=== PATIENT | male | born 1970 | race Hispanic/Latino ===

== ENCOUNTER 2019-05-07 20:02 | Inpatient (IN) | payer BC, OTHER ==
[~2019-05-07] VITALS: Ht 165.1 cm; Wt 86.2 kg
[2019-05-07] MEDS ORDERED: MORPHINE SULFATE INJ 4 MG/ML INJ 1ML IV STA (20:13)
[2019-05-07] MEDS ORDERED: SODIUM CHLORIDE 0.9% 1000ML 1,000 ML IV STA (20:13)
[2019-05-07] MEDS ORDERED: ONDANSETRON HCL INJ 2MG/ML 2ML 2 MG/ML VIAL IV STA (20:13)
[2019-05-07] MEDS ORDERED: ACETAMINOPHEN 325 MG TAB PO ONE (20:30)
[2019-05-07] MEDS ORDERED: CEFEPIME 2 GM/NS 0.9% 100 ML 100 ML IV SCH (20:30)
[2019-05-07] MEDS ORDERED: ACETAMINOPHEN 325 MG TAB ONE (20:33)
[2019-05-07] MEDS ORDERED: CEFEPIME 2 GM/NS 0.9% 100 ML 100 ML IV ONE (20:33)
[2019-05-07 20:46] LABS: BASOPHILS % 0.1 % (0.0-1.0); EOSINOPHILS # (AUTO) 0.1 (0.0-0.4); EOSINOPHILS % 0.4 % (0.0-6.0); HEMATOCRIT 49.2 % (38.2-49.6); HEMOGLOBIN 16.6 g/dL (14.0-18.0); LYMPHOCYTES # (AUTO) 0.9 (1.0-3.2); LYMPHOCYTES % 6.2 % (18.0-39.1); MEAN CORPUSCULAR HEMOGLOBIN 29.7 pg (28-32); MEAN CORPUSCULAR HGB CONC 33.7 g/dL (31-35); MONOCYTES # (AUTO) 0.5 (0.2-0.8); MONOCYTES % 3.3 % (4.4-11.3); NEUTROPHILS # (AUTO) 12.4 (2.1-6.9); NEUTROPHILS % 89.6 % (38.7-80.0); PLATELET COUNT 233 x10e3/uL (140-360); RED BLOOD COUNT 5.59 x10e6/uL (4.3-5.7); RED CELL DISTRIBUTION WIDTH 13.1 % (11.7-14.4)
[2019-05-07 20:51] LABS: CLARITY,URINE SL CLOUDY (CLEAR); COLOR,URINE YELLOW (YELLOW); KETONES,URINE NEGATIVE (NEGATIVE); LEUKOCYTE ESTERASE ,URINE NEGATIVE (NEGATIVE); NITRITE,URINE NEGATIVE (NEGATIVE); PROTEIN,URINE DIPSTICK NEGATIVE (NEGATIVE); URINE UROBILINOGEN 0.2 mg/dL (0.2 - 1)
[2019-05-07 20:52] LABS: BILIRUBIN,URINE NEGATIVE (NEGATIVE)
[2019-05-07 21:03] LABS: BACTERIA,URINE FEW /HPF
[2019-05-07 21:05] LABS: STREPTOCOCCUS GRP A ANTIGEN NEGATIVE (NEGATIVE)
[2019-05-07 21:07] LABS: ALANINE AMINOTRANSFERASE 39 IU/L (0-55); ALBUMIN 3.7 g/dL (3.5-5.0); ALKALINE PHOSPHATASE 74 IU/L (40-150); ANION GAP 13.5 mmol/L (8-16); BLOOD UREA NITROGEN 12 mg/dL (7-26); BUN/CREATININE RATIO 11 (6-25); CALCIUM 8.6 mg/dL (8.4-10.2); CARBON DIOXIDE 20 mmol/L (22-29); CHLORIDE 105 mmol/L (98-107); CREATININE, SERUM 1.06 mg/dL (0.72-1.25); EST GLOMERULAR FILTRATION RATE > 60 ML/MIN (60-); GLUCOSE 146 mg/dL (74-118); LIPASE 18 U/L (8-78); POTASSIUM 3.5 mmol/L (3.5-5.1); SODIUM 135 mmol/L (136-145)
[2019-05-07 21:09] LABS: INFLUENZAE A&B ANTIGEN (RAPID) NEGATIVE (NEGATIVE)
[2019-05-07] MEDS: SODIUM CHLORIDE 0.9% 1000ML 1,000 ML IV SCH (21:41)
--- NOTE | 2019-05-07 22:36 | Diagnostic Imaging Report ---
EXAMINATION: CHEST 2 VIEWS INDICATION: Pain. COMPARISON: None FINDINGS: TUBES and LINES: None. LUNGS: Lungs are well inflated. Mild perihilar, peribronchial thickening and perihilar streaky densities may reflect viral infection versus reactive airway disease. Bibasilar atelectasis. PLEURA: No pleural effusion or pneumothorax. HEART AND MEDIASTINUM: The cardiomediastinal silhouette is unremarkable. BONES AND SOFT TISSUES: No acute osseous lesion. Soft tissues are unremarkable. UPPER ABDOMEN: No free air under the diaphragm. IMPRESSION: Mild bilateral perihilar, peribronchial thickening. No focal consolidations. Signed by: Dr. Juli Pastrana M.D. on 05/07/2019 10:33 PM
[2019-05-07] MEDS ORDERED: IOPAMIDOL 370 MG/ML 200 ML INFUS..BTL INJ ONE (22:41)
[2019-05-07] MEDS ORDERED: SODIUM CHLORIDE 0.9% 50ML 50 ML ONE (22:41)
--- NOTE | 2019-05-07 22:55 | Diagnostic Imaging Report ---
EXAM: CT Abdomen and Pelvis WITH contrast INDICATION: Abdominal pain, nausea, vomiting diarrhea. Fever and chills. COMPARISON: None. TECHNIQUE: Abdomen and pelvis were scanned utilizing a multidetector helical scanner from the lung base to the pubic symphysis after administration of IV contrast. Coronal and sagittal reformations were obtained. Routine protocol was performed. Scan was performed when during portal venous phase. IV CONTRAST: 100 cc Isovue-370 ORAL CONTRAST: Water RADIATION DOSE: Total DLP: 718.03 mGy*cm Estimated effective dose: (DLP x 0.015 x size factor) mSv COMPLICATIONS: None FINDINGS: LINES and TUBES: None. LOWER THORAX: There is bibasilar atelectasis. HEPATOBILIARY: The liver is diffuse hypodense compared to the spleen, consistent with diffuse hepatic diffuse hepatic steatosis. No focal hepatic lesions. No biliary ductal dilation. GALLBLADDER: No radio-opaque stones or sludge. No wall thickening. SPLEEN: No splenomegaly. PANCREAS: No focal masses or ductal dilatation. ADRENALS: No adrenal nodules KIDNEYS/URETERS: Kidneys enhance symmetrically. No hydronephrosis. No cystic or solid mass lesions. No stones. GI TRACT: No abnormal distention, wall thickening, or evidence of bowel obstruction. Appendix is normal. PELVIC ORGANS/BLADDER: Unremarkable. LYMPH NODES: No lymphadenopathy. VESSELS: There is mild atherosclerotic disease in the aorta and major arterial branches. PERITONEUM / RETROPERITONEUM: No free air or fluid. BONES: Unremarkable. SOFT TISSUES: Unremarkable. IMPRESSION: 1. No acute abdominal pelvic abnormality. 2. Hepatic steatosis. Signed by: Dr. Juli Pastrana M.D. on 05/07/2019 10:52 PM
--- NOTE | 2019-05-07 23:26 | NUR ---
Patient swabbed for COVID-19 and dowtime form with order and ER MD signature sent to lab.
[2019-05-07] MEDS ORDERED: ONDANSETRON HCL INJ 2MG/ML 2ML 2 MG/ML VIAL IV PRN (23:30)
[2019-05-07] MEDS ORDERED: ACETAMINOPHEN 325 MG TAB PO PRN (23:30)
--- OUTSIDE RECORDS SUMMARY | 2019-05-07 23:30 | XMS REPORT ---
Author Author [facility] Address Unknown Phone Unavailable Care Team Providers Care Licensed Nursing Assistant Name Role Phone Jesusita BRITO Unavailable Unavailable Problems This patient has no known problems. Allergies, Adverse Reactions, Alerts This patient has no known allergies or adverse reactions. Medications This patient has no known medications. Results Test Description Test Time Test Comments Text Results Atomic Results Result Comments CT ABDOMEN/PELVIS W 2019-05-07 22:42:00 [facility] [address] [place] [id number] Patient Name: TRENTON ISIDRO MR #: [id number] : 1970 Age/Sex: 48/M Req #: [id number] Adm Physician: Ordered by: MIMI GONZALEZ FLATBED DRIVER Report #: [id number] Location: ER Room/Bed: Procedure: [id number] CT/CT ABDOMEN/PELVIS W Exam Date: Exam Time: REPORT STATUS: Signed EXAM: CT Abdomen and Pelvis WITH contrast INDICATION: Abdominal pain, nausea, vomiting diarrhea. Fever and chills. COMPARISON: None. TECHNIQUE: Abdomen and pelvis were scanned utilizing a multidetector helical scanner from the lung base to the pubic symphysis after administration of IV contrast. Coronal and sagittal reformations were obtained. Routine protocol was performed. Scan was performed when during portal venous phase. IV CONTRAST: 100 cc Isovue-370 ORAL CONTRAST: Water RADIATION DOSE: Total DLP: 718.03 mGy*cm Estimated effective dose: (DLP x 0.015 x size factor) mSv COMPLICATIONS: None FINDINGS: LINES and TUBES: None. LOWER THORAX: There is bibasilar atelectasis. HEPATOBILIARY: The liver is diffuse hypodense compared to the spleen, consistent with diffuse hepatic diffuse hepatic steatosis. No focal hepatic lesions. No biliary ductal dilation. GALLBLADDER: No radio- opaque stones or sludge. No wall thickening. SPLEEN: No splenomegaly. PANCREAS: No focal masses or ductal dilatation. ADRENALS: No adrenal nodules KIDNEYS/URETERS: Kidneys enhance symmetrically. No hydronephrosis. No cystic or solid mass lesions. No stones. GI TRACT: No abnormal distention, wall thickening, or evidence of bowel obstruction. Appendix is normal. PELVIC ORGANS/BLADDER: Unremarkable. LYMPH NODES: No lymphadenopathy. VESSELS: There is mild atherosclerotic disease in the aorta and major arterial branches. PERITONEUM / RETROPERITONEUM: No free air or fluid. BONES: Unremarkable. SOFT TISSUES: Unremarkable. IMPRESSION: 1. No acute abdominal pelvic abnormality. 2. Hepatic steatosis. Signed by: Dr. Juli Brenner M.D. on 05/07/2019 10:52 PM Dictated By: ROXANNA BRENNER MD, MD 51 Transcribed By: BONY on 05/07/192251 COPY TO: MIMI GONZALEZ NP CHEST 2 VIEWS 2019-05-07 22:31:00 [place] [address] Patient Name: TRENTON ISIDRO MR #: [id number] : 1970 Age/Sex: 48/M Req #: [id number] Adm Physician: Ordered by: MIMI GONZALEZ FLATBED DRIVER Report #: [id number] Location: ER Room/Bed: Procedure: [id number] DX/CHEST 2 VIEWS Exam Date: 05/07/19 Exam Time: 2149 REPORT STATUS: Signed EXAMINATION: CHEST 2 VIEWS INDICATION: Pain. COMPARISON: None FINDINGS: TUBES and LINES: None. LUNGS: Lungs are well inflated. Mild perihilar, peribronchial thickening and perihilar streaky densities may reflect viral infection versus reactive airway disease. Bibasilar atelectasis. PLEURA: No pleural effusion or pneumothorax. HEART AND MEDIASTINUM: The cardiomediastinal silhouette is unremarkable. BONES AND SOFT TISSUES: No acute osseous lesion. Soft tissues are unremarkable. UPPER ABDOMEN: No free air under the diaphragm. IMPRESSION: Mild bilateral perihilar, peribronchial thickening. No focal consolidations. Signed by: Dr. Juli Brenner M.D. on 05/07/2019 10:33 PM Dictated By: ROXANNA BRENNER MD, MD 32 Transcribed By: BONY on 05/07/192232 COPY TO: MIMI GONZALEZ NP
[2019-05-08] VITALS (9 sets, daily range): BP systolic 93–110; BP diastolic 48–72
[2019-05-08] MEDS: SODIUM CHLORIDE 0.9% 1000ML 1,000 ML IV SCH ×4 (00:36→19:54)
[2019-05-08] MEDS: METRONIDAZOLE 500MG/NS 100ML 100 ML IV SCH ×4 (00:36→17:35)
--- NOTE | 2019-05-08 00:56 | NUR ---
PATIENT CAME FROM ER WITH WHEELCHAIR, AWAKE ALERT ORIENTED, STATED STARTED HAVING FEVER AND DIARRHEA YESTERDAY. VITALS CHECKED, NO DISTRESS NOTED AT THIS TIME, IV FLUID AND IV ANTIBIOTIC RUNNING AT THIS TIME. DENIED ANY PAIN OR DISCOMFORT. WILL CONTINUE TO MONITOR.
[2019-05-08 06:25] LABS: BASOPHILS % 0.2 % (0.0-1.0); EOSINOPHILS # (AUTO) 0.1 (0.0-0.4); EOSINOPHILS % 1.2 % (0.0-6.0); HEMATOCRIT 42.5 % (38.2-49.6); HEMOGLOBIN 14.3 g/dL (14.0-18.0); LYMPHOCYTES # (AUTO) 1.2 (1.0-3.2); LYMPHOCYTES % 14.9 % (18.0-39.1); MEAN CORPUSCULAR HEMOGLOBIN 29.7 pg (28-32); MEAN CORPUSCULAR HGB CONC 33.6 g/dL (31-35); MEAN CORPUSCULAR VOLUME 88.2 fL (81-99); MONOCYTES # (AUTO) 0.7 (0.2-0.8); MONOCYTES % 8.9 % (4.4-11.3); NEUTROPHILS # (AUTO) 6.2 (2.1-6.9); NEUTROPHILS % 74.4 % (38.7-80.0); PLATELET COUNT 188 x10e3/uL (140-360); RED BLOOD COUNT 4.82 x10e6/uL (4.3-5.7); RED CELL DISTRIBUTION WIDTH 13.1 % (11.7-14.4)
[2019-05-08 06:42] LABS: ALANINE AMINOTRANSFERASE 30 IU/L (0-55); ALBUMIN/GLOBULIN RATIO 0.9 (0.8-2.0); ALKALINE PHOSPHATASE 61 IU/L (40-150); ANION GAP 8.5 mmol/L (8-16); CALCIUM 7.9 mg/dL (8.4-10.2); CARBON DIOXIDE 23 mmol/L (22-29); CHLORIDE 110 mmol/L (98-107); CREATININE, SERUM 0.82 mg/dL (0.72-1.25); EST GLOMERULAR FILTRATION RATE > 60 ML/MIN (60-); GLUCOSE 124 mg/dL (74-118); POTASSIUM 3.5 mmol/L (3.5-5.1); SODIUM 138 mmol/L (136-145)
--- NOTE | 2019-05-08 07:00 | NUR ---
bedside rounds complete no distress noted, updated on poc vocied understanding,ivf infusing to r ac 20g no ss of infiltration noted, isolation precautions in place, denies pain at this time, call light in reach will continue to monitor
[2019-05-08] MEDS: CEFEPIME 2 GM/NS 0.9% 100 ML 100 ML IV SCH ×3 (07:08→21:57)
[2019-05-08 08:26] LABS: BLOOD UREA NITROGEN 10 mg/dL (7-26); BUN/CREATININE RATIO 12 (6-25)
--- NOTE | 2019-05-08 16:30 | NUR ---
dr prater at bedside pt does not have to be in isolation precautions, notified dr carroll awaiting call back
--- NOTE | 2019-05-08 17:20 | NUR ---
spoke with Dr. Chris montalvo to transfer to [facility], notified housekeeper caregiver
--- NOTE | 2019-05-08 17:35 | Consultation ---
DATE OF CONSULTATION: 05/08/2019 ADDENDUM: There is concern if the patient is at risk for COVID-19. He has no risk factors. Clinically, it seems like gastroenteritis. The plan is to take him off isolation, observe him for diarrhea. The nurse tells me there is no more diarrhea. If he has no diarrhea, then can observe the patient on contact isolation. MD BELEN Calvert/LUIS CARLOS /[id number]
--- NOTE | 2019-05-08 18:15 | NUR ---
report called to receiving nurse pt transferred to rm 200 pt left in stable condition with all belongings
--- NOTE | 2019-05-08 18:45 | NUR ---
The pt. was received from obs in stable condition
--- NOTE | 2019-05-08 19:00 | NUR ---
RECEIVED PATIENT IN BEDSIDE SHIFT REPORT. PATIENT RESTING IN BED AT THIS TIME, A&OX4. STATES HE HAS SOME "STOMACH GRUMBLING AND DISCOMFORT" BUT DOES NOT REQUEST PAIN MEDICATION AT THIS TIME. IV TO R AC 20G ASYMPTOMATIC, INTACT, AND PATENT. NO EDEMA NOTED. PEDAL PULSES PALPABLE. LUNG SOUNDS CLEAR. NO S&S OF DISTRESS NOTED. BED LOCKED IN LOWEST POSITION, SIDE RAILS UPX2, CALL LIGHT IN REACH.
--- NOTE | 2019-05-08 19:30 | Consultation ---
DATE OF CONSULTATION: 05/08/2019 HISTORY OF PRESENT ILLNESS: This patient who is a very pleasant 48-year-old male. The patient comes in with abdominal pain started for a couple of days, vomiting, fever, diarrhea, had one episode of vomiting but the diarrhea was severe, came to the emergency room. There was no shortness of breath. There was no cough. No travel. No other antibiotic. He denies any other past medical history. PAST MEDICAL HISTORY: Hyperlipidemia. PAST SURGICAL HISTORY: Denies. ALLERGIES: NKA. SOCIAL HISTORY: There is no smoking, drug abuse, or alcohol abuse. No travel. FAMILY HISTORY: Otherwise noncontributory. REVIEW OF SYSTEMS: At the present time when I saw him HEENT: Negative. PULMONARY: Negative. CARDIAC: Negative. : Negative. He said there is no more diarrhea. There is no more abdominal pain. All other systems within normal limits. IMAGING DATA: His laboratory reviewed. CAT scan of abdomen and pelvis showed there is no acute abdominal or pelvic findings. He does have hepatic steatosis. Chest x-ray, mild bilateral thickening . LABORATORY DATA: White count when he first came was 13.78, came down to 8.3, hemoglobin 16, hematocrit 49, platelet 239. His sodium 138, potassium 3.5, and lactic acid 2.8. His influenza A and B was negative. PHYSICAL EXAMINATION: GENERAL: He is currently alert, oriented, does not seem to be in acute distress. His vital stable afebrile, T-max 101.2. HEENT: Not icteric. NECK: Supple. CHEST: Clear. HEART: Soft, bowel sounds present. No tenderness. EXTREMITIES: No edema. SKIN: No rash. IMPRESSION: I think the patient have gastroenteritis, bacteria versus viral. He is currently on cefepime and Flagyl. Clinically doing better. White count normalized. Continue same. If no fever for next 24 hours and his diarrhea is improving, can discharge home with Cipro and Flagyl for 2 weeks. Follow up as an outpatient. MD BELEN Calvert/MODL /[id number]
--- NOTE | 2019-05-08 20:51 | History and Physical ---
The patient is in [facility]. CHIEF COMPLAINT: The patient came in with high-grade fever of 102 and also nausea, vomiting, and diarrhea. HISTORY OF PRESENT ILLNESS: Mr. 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 The patient has ever since been under observation for ruling out COVID-19 too. PAST MEDICAL HISTORY: Noncontributory. SOCIAL HISTORY: No EtOH. No IV drug abuse. No history of smoking. FAMILY HISTORY: Noncontributory. REVIEW OF SYSTEMS: Negative for chest pain. Positive for some shortness of breath. Positive nausea, vomiting, or diarrhea. No constipation. No rectal bleeding. No hematochezia. No hematemesis. Possible myalgia. Positive for high-grade fever. No diplopia. No blurry vision either. PHYSICAL EXAMINATION: VITAL SIGNS: On arrival, temperature is 101.2, pulse of 135, respirations of 20-25, blood pressure is 122/66, pulse oximetry of 95%. HEENT: Normocephalic, atraumatic. Pupils are reactive. CVS: S1 and S2 normal. Regular rhythm. LUNGS: Positive for decreased air entry. ABDOMEN: Tender in the left lower quadrant. EXTREMITIES: No clubbing, no cyanosis, no edema. LABORATORY VALUES: White count initially was 13,000, hemoglobin of 16.6. Today is 8.31 and 14.3. Chemistry shows sodium 135 initially, potassium 3.5, glucose of 146, lactic acid was 2.8. ALT/AST normal. Urine was negative. Serology group A strep screen was negative. Influenza A and B were negative. The patient's Coronavirus PCR is pending. ASSESSMENT: Mr. Noemí Delaney with, 1. Acute febrile illness. Rule out Covid-19, negative for flu and strep. 2. Abdominal pain with nausea and vomiting. IMAGING STUDIES: Showed no acute abdominal pelvic abnormality except for hepatic steatosis and chest x-ray showed mild perihilar, peribronchial thickening. No focal consolidation. PLAN: The patient has been given metronidazole and cefepime at this time. White count has been better and the patient is feeling better. Also, on slow sodium chloride 150 mL/h, Zofran 4 mg every 6 hours has been given too. Plan is to continue to monitor the patient in the unit and the patient will be monitored and we will keep him in isolation until Covid-19 PCR is back. Further recommendation and clinical course, we will continue to monitor the patient in the isolation unit. Further recommendation per clinical course. An ID consult has been done. MD TONY CelayaJ/MODL /[id number]
[2019-05-09] VITALS: BP 95/63
[2019-05-09] MEDS: METRONIDAZOLE 500MG/NS 100ML 100 ML IV SCH ×3 (00:21→12:00)
[2019-05-09 04:00] VITALS: BP 99/66
[2019-05-09] MEDS: SODIUM CHLORIDE 0.9% 1000ML 1,000 ML IV SCH (04:30)
--- NOTE | 2019-05-09 05:12 | Progress Note ---
DATE: 05/09/2019 SUBJECTIVE: The patient did well overnight. He states his abdominal pain is significantly improved. He has had no further diarrhea. He has no nausea or vomiting. He is able to eat well. He still has some low-grade temperatures. OBJECTIVE: VITAL SIGNS: Temperature 99, blood pressure 102/70, pulse 74, saturation 98% on room air. GENERAL: He is no apparent distress, lying in bed. CARDIOVASCULAR: Regular rate and rhythm. LUNGS: Clear to auscultation bilaterally. ABDOMEN: Good bowel sounds. Soft, nontender. No peritoneal signs. No distention. EXTREMITIES: No clubbing or cyanosis. NEUROLOGIC: Nonfocal. ASSESSMENT/PLAN: 1. Gastroenteritis. Continue with current care since he is doing better. 2. Leukocytosis has resolved. 3. Diabetes. Continue monitor. 4. Fever. Continue with current care, most likely should improve today, continue the use of antibiotics. Please see hospital chart for full details. MD JOHNIE Lauren/LUIS CARLOS /[id number]
[2019-05-09] MEDS: CEFEPIME 2 GM/NS 0.9% 100 ML 100 ML IV SCH (06:42)
--- NOTE | 2019-05-09 07:00 | NUR ---
RCD PT AT BED PT IS ALERT AND ORIENTED PT RESTING ON BED IV PATENT BY SALINE FLUSH BED LOW AND LOCKED CALL LIGHT IN REACH
[2019-05-09 07:44] VITALS: BP 107/76
[2019-05-09 08:21] VITALS: BP 107/76
--- NOTE | 2019-05-09 10:50 | NUR ---
AC TO DR CARIAS PT CAN GO HOME IF OK WITH DR RIAN WALDEN AND NOTIFIED DR ZIEGLER (COVERING DR MODI ) GOT THE DISCHARGE APPROVAL
[2019-05-09] MEDS ORDERED: FLAGYL250 MG PO (11:17)
[2019-05-09] MEDS ORDERED: CIPRO500 MG PO (11:17)
[2019-05-09 11:47] VITALS: BP 117/70
--- NOTE | 2019-05-09 13:15 | NUR ---
PATIENT WENT HOME IN SAFE CONDITION WITH HIS
--- NOTE | 2019-05-18 08:59 | Discharge Summary ---
HOSPITAL COURSE: The patient came into emergency room with gastrointestinal symptoms of nausea, vomiting, and high-grade fever. The patient was feeling better. Metronidazole and cefepime were started. Initially, the patient had a COVID-19 screen with the onset of shortness of breath, fever, nausea, and diarrhea. The patient was kept in isolation for about a day. Cultures were done. Blood cultures were negative. COVID-19 was done and was also negative. CT of the abdomen and pelvis was negative. Chest x-ray showed no focal consolidation. No respiratory distress was noted. The 2nd day, the patient was moved out of the isolation unit. The patient's electrolytes were repleted. The patient's nausea and vomiting resolved, diarrhea resolved. The patient is better. The patient was sent home to be followed up with ID. Cipro and Rock for three weeks were given to the patient on discharge. For further information, look into the chart. FINAL DIAGNOSES: 1. Sepsis. 2. Gastrointestinal colitis. 3. Electrolyte abnormalities. 4. Hyperkalemia. PLAN: Plan was to discharge the patient. Followup in about a week's time. Check blood work and also again follow up in COVID-19. MD DIEUDONNE Celaya/LUIS CARLOS /[id number]
== END 2019-05-09 13:03 | disposition home or self-care (01) | DRG 872 ==
LOC: ER 20:02 → ERHOLD 23:27 → IMCU 05-08 00:07 → MED/SURG2 05-08 18:31
PROVIDERS: ADMIT Family Medicine; ATTEND Family Medicine
DX: A41.9 Sepsis, unspecified organism (principal); A09 Infectious gastroenteritis and colitis, unspecified; R65.20 Severe sepsis without septic shock; E11.9 Type 2 diabetes mellitus without complications; E87.5 Hyperkalemia; Z03.818 Encounter for observation for suspected exposure to other biological agents ruled out; E78.5 Hyperlipidemia, unspecified; Z82.49 Family history of ischemic heart disease and other diseases of the circulatory system; A08.4 Viral intestinal infection, unspecified
CPT/HCPCS: 36415; 71046; 74177; 80053; 81001; 83518; 83605; 83690; 85025; 87040; 87070; 87400; 87635; 99284; J2405; J7030; Q9967

== ENCOUNTER 2019-09-19 08:34 | Observation (INO) | payer BC, SELFPAY ==
[~2019-09-19] VITALS: Ht 165.1 cm; Wt 96.6 kg
[~2019-09-19 08:34] MED LIST: CIPRO500 MG PO; FLAGYL250 MG PO
[2019-09-19] MEDS ORDERED: SODIUM CHLORIDE 0.9% 1000ML 1,000 ML IV STA ×2 (08:48)
[2019-09-19] MEDS ORDERED: ACETAMINOPHEN 325 MG TAB PO ONE (09:00)
[2019-09-19 09:06] LABS: BASOPHILS # (AUTO) 0.1 (0.0-0.1); BASOPHILS % 0.4 % (0.0-1.0); EOSINOPHILS # (AUTO) 0.1 (0.0-0.4); EOSINOPHILS % 0.5 % (0.0-6.0); HEMATOCRIT 44.1 % (38.2-49.6); LYMPHOCYTES % 10.5 % (18.0-39.1); MEAN CORPUSCULAR HEMOGLOBIN 29.4 pg (28-32); MEAN CORPUSCULAR VOLUME 86.3 fL (81-99); MONOCYTES # (AUTO) 1.3 (0.2-0.8); MONOCYTES % 6.6 % (4.4-11.3); NEUTROPHILS # (AUTO) 15.7 (2.1-6.9); NEUTROPHILS % 81.3 % (38.7-80.0); PLATELET COUNT 204 x10e3/uL (140-360); RED BLOOD COUNT 5.11 x10e6/uL (4.3-5.7); RED CELL DISTRIBUTION WIDTH 12.6 % (11.7-14.4)
[2019-09-19 09:27] LABS: ALANINE AMINOTRANSFERASE 48 IU/L (0-55); ALBUMIN 3.7 g/dL (3.5-5.0); ALKALINE PHOSPHATASE 80 IU/L (40-150); ANION GAP 12.9 mmol/L (8-16); BLOOD UREA NITROGEN 10 mg/dL (7-26); BUN/CREATININE RATIO 10 (6-25); CALCIUM 8.6 mg/dL (8.4-10.2); CARBON DIOXIDE 26 mmol/L (22-29); CHLORIDE 101 mmol/L (98-107); CREATINE KINASE 175 IU/L (30-200); CREATININE, SERUM 1.02 mg/dL (0.72-1.25); EST GLOMERULAR FILTRATION RATE > 60 ML/MIN (60-); GLUCOSE 174 mg/dL (74-118); POTASSIUM 3.9 mmol/L (3.5-5.1); SODIUM 136 mmol/L (136-145)
--- NOTE | 2019-09-19 09:32 | Emergency Department Note ---
History of Present Illnes History of Present Illness Chief Complaint: COVID PUI History of Present Illness This is a 48 year old male arrives to the ED with complaints of generalized malaise and weakness. 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 Patient states his a diabetic and he was checking his blood sugar at home she noted to be in the 250s. Patient also complaining generalized malaise and weakness and loss of taste. Historian: Patient Arrival Mode: Car Onset (how long ago): day(s) Severity: mild Duration (how long): day(s) Timing of current episode: constant Progression: worsening Context: Reports recent illness Relieving factors: none Exacerbating factors: none Past Medical/Family History Physician Review I have reviewed the patient's past medical and family history. Any updates have been documented here. Past Medical History Recent Fever: Yes Clinical Suspicion of Infectio: No New/Unexplained Change in Ment: No Past Medical History: Diabetes, Hyperlipedemia Past Surgical History: None Other Last Tetanus: UTD Review of Systems Review of Systems Constitutional: Reports no symptoms, Reports as per HPI, Reports chills, Reports fever EENTM: Reports no symptoms Cardiovascular: Reports no symptoms Respiratory: Reports as per HPI Gastrointestinal: Reports no symptoms Genitourinary: Reports no symptoms Musculoskeletal: Reports no symptoms Integumentary: Reports no symptoms Neurological: Reports no symptoms Psychological: Reports no symptoms Endocrine: Reports as per HPI Hematological/Lymphatic: Reports no symptoms Physical Exam Related Data Allergies: Coded Allergies: No Known Drug Allergies (Verified Allergy, Mild, 03/22/10) Triage Vital Signs Vital Signs Date Time Temp Pulse Resp B/P (MAP) Pulse Ox O2 Delivery O2 Flow Rate FiO2 09/19/19 08:41 100.6 122 19 130/84 98 Room Air Vital signs reviewed: Yes Physical Exam CONSTITUTIONAL Constitutional: Present obese HENT HENT: Present normocephalic, Present atraumatic, Present oropharynx clear/moist, Present nose normal HENT L/R: Present left ext ear normal, Present right ext ear normal EYES Eyes: Reports PERRL, Reports conjunctivae normal NECK Neck: Present ROM normal PULMONARY Pulmonary: Present effort normal, Present breath sounds normal CARDIOVASCULAR Cardiovascular: Present regular rhythm, Present heart sounds normal, Present capillary refill normal, Present normal rate GASTROINTESTINAL Abdominal: Present soft, Present nontender, Present bowel sounds normal GENITOURINARY Genitourinary: Present exam deferred SKIN Skin: Present warm, Present dry MUSCULOSKELETAL Musculoskeletal: Present ROM normal NEUROLOGICAL Neurological: Present alert, Present oriented x 3, Present no gross motor or sensory deficits PSYCHOLOGICAL Psychological: Present mood/affect normal, Present judgement normal Results Laboratory Laboratory Laboratory Tests Test 09/19/19 08:45 Laboratory Tests Test 09/19/19 11:37 09/19/19 10:23 09/19/19 09:48 09/19/19 08:45 Lactic Acid Level 1.2 mmol/L (0.5-2.0) Urine Color Yellow (YELLOW) Urine Clarity Clear (CLEAR) Urine pH 5.5 (5 - 7) Urine Specific [place] 1.020 (1.010-1.025) Urine Protein Negative (NEGATIVE) Urine Glucose (UA) 1+ (NEGATIVE) Urine Ketones Negative (NEGATIVE) Urine Blood Negative (NEGATIVE) Urine Nitrite Negative (NEGATIVE) Urine Bilirubin Negative (NEGATIVE) Urine Urobilinogen 0.2 mg/dL (0.2 - 1) Urine Leukocyte Esterase Negative (NEGATIVE) Urine RBC 0-5 /HPF (0-5) Urine WBC 0-5 /HPF (0-5) Urine Epithelial Cells Few /LPF (NONE) Urine Bacteria Rare /HPF (NONE) White Blood Count 19.29 x10e3/uL (4.8-10.8) Red Blood Count 5.11 x10e6/uL (4.3-5.7) Hemoglobin 15.0 g/dL (14.0-18.0) Hematocrit 44.1 % (38.2-49.6) Mean Corpuscular Volume 86.3 fL (81-99) Mean Corpuscular Hemoglobin 29.4 pg (28-32) Mean Corpuscular Hemoglobin Concent 34.0 g/dL (31-35) Red Cell Distribution Width 12.6 % (11.7-14.4) Platelet Count 204 x10e3/uL (140-360) Neutrophils (%) (Auto) 81.3 % (38.7-80.0) Lymphocytes (%) (Auto) 10.5 % (18.0-39.1) Monocytes (%) (Auto) 6.6 % (4.4-11.3) Eosinophils (%) (Auto) 0.5 % (0.0-6.0) Basophils (%) (Auto) 0.4 % (0.0-1.0) Neutrophils # (Auto) 15.7 (2.1-6.9) Lymphocytes # (Auto) 2.0 (1.0-3.2) Monocytes # (Auto) 1.3 (0.2-0.8) Eosinophils # (Auto) 0.1 (0.0-0.4) Basophils # (Auto) 0.1 (0.0-0.1) Absolute Immature Granulocyte (auto 0.13 x10e3/uL (0-0.1) Sodium Level 136 mmol/L (136-145) Potassium Level 3.9 mmol/L (3.5-5.1) Chloride Level 101 mmol/L (98-107) Carbon Dioxide Level 26 mmol/L (22-29) Anion Gap 12.9 mmol/L (8-16) Blood Urea Nitrogen 10 mg/dL (7-26) Creatinine 1.02 mg/dL (0.72-1.25) Estimat Glomerular Filtration Rate > 60 ML/MIN (60-) BUN/Creatinine Ratio 10 (6-25) Glucose Level 174 mg/dL (74-118) Calcium Level 8.6 mg/dL (8.4-10.2) Total Bilirubin 0.6 mg/dL (0.2-1.2) Aspartate Amino Transf (AST/SGOT) 20 IU/L (5-34) Alanine Aminotransferase (ALT/SGPT) 48 IU/L (0-55) Alkaline Phosphatase 80 IU/L (40-150) Creatine Kinase 175 IU/L (30-200) Creatine Kinase MB 1.10 ng/mL (0-5.0) Troponin I 0.004 ng/mL (0-0.300) Total Protein 7.3 g/dL (6.5-8.1) Albumin 3.7 g/dL (3.5-5.0) Globulin 3.6 g/dL (2.3-3.5) Albumin/Globulin Ratio 1.0 (0.8-2.0) Lipase 35 U/L (8-78) Lab results reviewed: Yes Imaging Imaging results reviewed: Yes Procedures Lumbar Puncture Time out performed: Yes Patient position: upright Skin prep: 0.5% Chlorhexidine/Alcohol Local anesthetic: lidocaine 1% Spinal needle gauge: 20G Interspace used: L4-L5 Fluid initially obtained: bloody Complications: traumatic tap Assessment & Plan Medical Decision Making MDM 48-year-old well-appearing male arrives to the ED with elevated blood sugar, patient is a newly diagnosed diabetic, patient also noted be febrile and tachycardic with signs and symptoms that were initially concerning for the coronavirus. Patient's chest x-ray was normal, with complaints of a headache there was a possible suspicion of meningitis. LP done by me, likely traumatic. Normal opening pressure. Concerns of sepsis were noted at 1000 Left lactic acid normal, blood cultures sent, broad spectrum antibiotics given No source of infection present at time of admission, patient empirically covered. Assessment & Plan Final Impression: (1) COVID-19 Depart Disposition: HOME, SELF-CARE Last Vital Signs Date Time Temp Pulse Resp B/P (MAP) Pulse Ox O2 Delivery O2 Flow Rate FiO2 09/19/19 08:41 100.6 122 19 130/84 98 Room Air Home Meds Reported Medications Metronidazole (FLAGYL) 250 Mg Tablet, 500 MG PO TID, #42 05/09/19 Ciprofloxacin Hcl (CIPRO) 500 Mg Tablet, 500 MG PO Q12H, #28 TAB 05/09/19 Medications in the ED Sodium Chloride 1,000 ml @ 0 mls/hr Q0M STAT IV ; Start 09/19/19 at 08:48; Stop 09/19/19 at 08:50; Status DC Sodium Chloride 1,000 ml @ 0 mls/hr Q0M STAT IV ; Start 09/19/19 at 08:48; Stop 09/19/19 at 08:50; Status DC Acetaminophen 650 mg ONCE ONCE PO ; Start 09/19/19 at 09:00; Stop 09/19/19 at 09:01; Status DC RADHA JONES, Sep 19, 2019 09:32
[2019-09-19] MEDS ORDERED: CEFEPIME 1GM/NS 0.9% 50 ML 50 ML IV STA (09:33)
--- NOTE | 2019-09-19 10:32 | Diagnostic Imaging Report ---
EXAMINATION: CHEST SINGLE (PORTABLE) INDICATION: Pneumonia, cough COMPARISON: Chest radiograph 09/21/2007, CT abdomen and pelvis 05/07/2019 FINDINGS: LINES/TUBES:None LUNGS:The lungs are well-inflated. No focal consolidation or pulmonary edema. PLEURA:No pleural effusion or pneumothorax. MEDIASTINUM:The cardiomediastinal silhouette appears normal in size and shape. BONES/SOFT TISSUES:No acute osseous injury. ABDOMEN:No free air under the diaphragm. IMPRESSION: No focal pneumonia or pulmonary edema. Signed by: Ramon Victoria MD on 09/19/2019 10:29 AM
[2019-09-19 11:15] LABS: CLARITY,URINE CLEAR (CLEAR); COLOR,URINE YELLOW (YELLOW); LEUKOCYTE ESTERASE ,URINE NEGATIVE (NEGATIVE); NITRITE,URINE NEGATIVE (NEGATIVE)
[2019-09-19 11:16] LABS: BILIRUBIN,URINE NEGATIVE (NEGATIVE); KETONES,URINE NEGATIVE (NEGATIVE); PROTEIN,URINE DIPSTICK NEGATIVE (NEGATIVE); URINE UROBILINOGEN 0.2 mg/dL (0.2 - 1)
[2019-09-19 11:21] LABS: BACTERIA,URINE RARE /HPF; EPITHELIAL CELLS,URINE FEW /LPF; RBC,URINE 0-5 /HPF (0-5); WBC,URINE (MAN) 0-5 /HPF (0-5)
--- NOTE | 2019-09-19 13:18 | Diagnostic Imaging Report ---
Exam: Head CT without contrast History: Headache, fever Comparison studies: None Technique: Axial images were obtained from the skull base to the vertex. Coronal and sagittal images reconstructed from the axial data. Dose modulation, iterative reconstruction, and/or weight based adjustment of the mA/kV was utilized to reduce the radiation dose to as low as reasonably achievable. Radiation dose: Total DLP: 832.18 mGy*cm. Estimated effective dose: DLP x 0.015 Intravenous contrast: None Findings: Scalp: Scarring present in the right occipital scalp near the vertex. Bones: No fractures, blastic or lytic lesions. Brain sulci: Appropriate for age. Ventricles: Normal in size and configuration. No hydrocephalus. Extra-axial spaces: No masses, no fluid collection. Parenchyma: No abnormal densities. No masses, hemorrhage, acute or chronic vascular insults. Sellar/suprasellar region: No abnormalities. Craniocervical junction: Patent foramen magnum. No Chiari one malformation. Incidental findings: Partially opacified right mastoids with sclerotic changes as sequela chronic information. IMPRESSION: No acute abnormalities. Signed by: Dr. Julius Villalba M.D. on 09/19/2019 1:14 PM
[2019-09-19] MEDS ORDERED: LIDOCAINE HCL 1% LOCAL INJ 20 ML VIAL ONE (15:31)
[2019-09-19] MEDS ORDERED: ONDANSETRON HCL INJ 2MG/ML 2ML 2 MG/ML VIAL IV PRN (16:45)
[2019-09-19] MEDS ORDERED: MORPHINE SULFATE INJ 4 MG/ML INJ 1ML IV PRN (16:45)
[2019-09-19 16:59] LABS: APPEARANCE,CSF BLOODY (CLEAR)
[2019-09-19 17:00] LABS: COLOR,CSF RED (COLORLESS); TUBE NUMBER 3
[2019-09-19 17:33] VITALS: BP 112/69
[2019-09-19 17:39] LABS: WHITE BLOOD CELL,CSF 5 cells/uL (0-5)
[2019-09-19 17:43] VITALS: BP 112/69
[2019-09-19] MEDS ORDERED: DEXTROSE 50% SYRINGE 50 ML IV PRN (17:45)
[2019-09-19 17:59] VITALS: BP 112/69
--- NOTE | 2019-09-19 18:16 | NUR ---
Pt received from ER at this time. Pt is aox3 and able to verbalize needs. 0 s/s of acute distress noted. Breaths are even and unlabored on room air.
--- NOTE | 2019-09-19 19:49 | NUR ---
RECEIVED CALL FROM LAB COVID NEGATIVE RESULT . REPORTED COVID NEGATIVE RESULTS TO SUBSCRIPTION CLERK.
[2019-09-19 20:00] VITALS: BP 111/74
[2019-09-19] MEDS: INSULIN REGULAR, HUMAN 100 UNIT/1 ML 3ML VIAL SQ SCH (20:27)
--- NOTE | 2019-09-19 20:36 | NUR ---
PROVIDED EDUCATION REGARDING S/S OF LOW BLOOD SUGAR AT BEDSIDE. INSTRUCTED TO NOTIFY IF S/S APPEAR. VERBALIZES UNDERSTANDING.
--- NOTE | 2019-09-19 20:51 | History and Physical ---
The patient came in with generalized malaise, weakness, fatigue, and dizziness. HISTORY OF PRESENT ILLNESS: Mr. Rhett Dowd, who was in usual state of health, on my way to the office when he developed fever. The patient complained of generalized fatigue and was sent to the emergency room. The patient arrived and had an LP done for fever and elevated white count. The patient is admitted to the hospital. PAST MEDICAL HISTORY: History of hypertension, history of prediabetes, otherwise noncontributory. MEDICATIONS: He takes none. ALLERGIES: NO CLEAR ALLERGIES. SOCIAL HISTORY: No EtOH, no IV drug abuse, positive for smoking. PHYSICAL EXAMINATION: VITAL SIGNS: Temperature is 100.6, pulse of 122, respirations of 19, blood pressure is 130/84. HEENT: Normocephalic and atraumatic. The patient had a poor oropharynx with poor dental hygiene. CVS: S1 and S2 normal. Regular rhythm. LUNGS: Clear to auscultation. ABDOMEN: Soft, nontender, nondistended. EXTREMITIES: No clubbing, no cyanosis, no edema. LABORATORY DATA: The patient's lactic acid was 1.2. Urine essentially negative. White count is 19,000, neutrophil count 81,000. The patient also had lumbar puncture done, which was normal. ASSESSMENT: A 48-year-old gentleman with elevated white count and elevated blood sugars, admitted for possible viral syndrome. LP was negative. The patient has been started on broad-spectrum antibiotics, has been kept on insulin. PLAN: Plan is to continue to monitor the patient. Consult with Dr. Deluca has been done. Possible viral in nature. We will check his A1c. Check of labs in the morning and possible discharge in the morning. Further recommendation per clinical course. Damir Perez MD ASJ/MODL /[id number]
--- OUTSIDE RECORDS SUMMARY | 2019-09-19 21:09 | XMS REPORT | Continuity of Care Document ---
Author Author [facility] t Organization [facility] Address [address] [place] [address] Phone Unavailable Care Team Providers Care Email Campaign Manager Name Role Phone Gregorio MODI MD PCP Gregorio MODI Attphys Unavailable Jesusita BRITO Attphys Unavailable Gregorio MODI Admphys Unavailable Payers Payer Name Policy Type Policy Number Effective Date Expiration Date Gregorio rios [employer] [place] Ppo [id number] 2014 00:00:00 [facility] Problems This patient has no known problems. Allergies, Adverse Reactions, Alerts This patient has no known allergies or adverse reactions. Medications Ordered Medication Name Filled Medication Name Start Date Stop Da te Current Medication? Ordering Clinician Indication Dosage Frequency Signature (SIG) Comments Components Source Ciprofloxacin Hcl (Cipro) 500 Mg Tablet Ciprofloxacin Hcl (C ipro) 500 Mg Tablet Yes 500 Every 12 Hours [facility] Metronidazole (Flagyl) 250 Mg Tablet Metronidazole (Flagyl) 250 Mg Tablet Yes 500 Three Times A Day [facility] Procedures Procedure Date / Time Performed Performing Clinician Sour e Computed tomography of abdomen and pelvis with contrast 2019 00:00:00 MIMI GONZALEZ [facility] X-ray of chest, two views 2019-05-07 00:00:00 MIMI GONZALEZ [facility] Encounters Start Date/Time End Date/Time Encounter Type Admission Type [facility] Facility Care Department Encounter ID Source 2019-05-07 23:27:00 2019-05-09 13:03:00 Discharged Inpatient 1 [facility]Y [facility]O [facility] [id number] [facility] Results Test Description Test Time Test Comments Results Result Comments Source CT BRAIN WO 2019-09-19 13:10:00 [place] [id number] [place] [address] Patient Name: TRENTON ISIDRO JR MR #: [id number] : 1970 Age/Sex: 48/M Req #: [id number] Adm Physician: EVIE MODI MD Ordered by: RADHA JONES DO Report #: [id number] Location: [facility] Room/Bed: [place] [address] Procedure: [id number] CT/CT BRAIN WO Exam Date: 09/19/19 Exam Time: 1152 REPORT STATUS: Signed Exam: Head CT without contrast History: Headache, fever Comparison studies: None Technique: Axial images were obtained from the skull base to the vertex. Coronal and sagittal images reconstructed from the axial data. Dose modulation, iterative reconstruction, and/or weight based adjustment of the mA/kV was utilized to reduce the radiation dose to as low as reasonably achievable. Radiation dose: Total DLP: 832.18 mGy*cm. Estimated effective dose: DLP x 0.015 Intravenous contrast: None Findings: Scalp: Scarring present in the right occipital scalp near the vertex. Bones: No fractures, blastic or lytic lesions. Brain sulci: Appropriate for age. Ventricles: Normal in size and configuration. No hydrocephalus. Extra-axial spaces: No masses, no fluid collection. Parenchyma: No abnormal densities. No masses, hemorrhage, acute or chronic vascular insults. Sellar/suprasellar region: No abnormalities. Craniocervical junction: Patent foramen magnum. No Chiari one malformation. Incidental findings: Partially opacified right mastoids with sclerotic changes as sequela chronic information. IMPRESSION: No acute abnormalities. Signed by: Dr. Alin Villalba M.D. on 09/19/2019 1:14 PM Dictated By: ALIN VILLALBA MD 1314 Transcribed By: BONY on 09/19/19 1314 COPY TO: RADHA JONES DO CHEST SINGLE (PORTABLE) 2019-09-19 10:28:00 [facility] [address] [place] [address] Patient Name: TRENTON ISIDRO JR MR #: [id number] : 1970 Age/Sex: 48/M Req #: [id number] Adm Physician: Ordered by: RADHA JONES DO Report #: [id number] Location: ER Room/Bed: Procedure: [id number] DX/CHEST SINGLE (PORTABLE) Exam Date: Exam Time: REPORT STATUS: Signed EXAMINATION: CHEST SINGLE (PORTABLE) INDICATION: Pneumonia, cough COMPARISON: Chest radiograph 09/21/2007, CT abdomen and pelvis 05/07/2019 FINDINGS: LINES/TUBES:None LUNGS:The lungs are well-inflated. No focal consolidation or pulmonary edema. PLEURA:No pleural effusion or pneumothorax. MEDIASTINUM:The cardiomediastinal silhouette appears normal in size and shape. BONES/SOFT TISSUES:No acute osseous injury. ABDOMEN:No free air under the diaphragm. IMPRESSION: No focal pneumonia or pulmonary edema. Signed by: Annabel España MD on 09/19/2019 10:29 AM Dictated By: ANNABEL ESPAÑA MD 1029 Transcribed By: BONY on 09/19/19 1029 COPY TO: RADHA JONES DO Blood Culture 2019-05-08 20:42:00 Test Item Blood Culture (test code = 51328233) NO GROWTH AFTER 24 HOURS [facility] Urea Wwgmzuuo4631-10-49 08:32:00* Test Item Value Reference Range Interpretation Comments Blood Urea Nitrogen (test code = 3094-0) 10 7-26 [facility]lineBUN/Creatinine Jerhl3407-25-40 08:32:00* Test Item Value Reference Range Interpretation Comments BUN/Creatinine Ratio (test code = 3097-3) 12 6- [facility] Ivreu6024-75-44 06:43:00* Test Item Value Reference Range Interpretation Comments Sodium Level (test code = 2951-2) 138 136-145 [facility]linePotassium Odpnr5598-08-60 06:43:00* Test Item Value Reference Range Interpretation Comments Potassium Level (test code = 2823-3) 3.5 3.5-5.1 [facility]lineChloride Askzp1543-85-93 06:43:00* Test Item Value Reference Range Interpretation Comments Chloride Level (test code = 2075-0) 110 98-107 H [facility]lineCarbon Dioxide Hnkjh3374-12-41 06:43:00* Test Item Value Reference Range Interpretation Comments Carbon Dioxide Level (test code = 2028-9) 23 22-29 [facility]lineAnion Yup3105-06-00 06:43:00* Test Item Value Reference Range Interpretation Comments Anion Gap (test code = 89714-7) 8.5 8-16 [facility]lineCreatinine2020-03-19 06:43:00* Test Item Value Reference Range Interpretation Comments Creatinine (test code = 2160-0) 0.82 0.72-1.25 [facility] ShorelineEstimat Glomerular Filtration Rate 2019-05-08 06:43:00* Test Item Value Reference Range Interpretation Comments Estimat Glomerular Filtration Rate (test code = 728441151) > 60 >60 Ranges were taken from the National Kidney Disease Education Program and the [facility] Foundation literature.Reference ranges:60 or greater: Kljdrj91-61 ( for 3 consecutive months): Chronic kidney disease 15 or less: Kidney failureCHRISTUS Spohn Hospital Corp[facility] Christi – ShorelineGlucose Lavlr3065-91-72 06:43:00* Test Item Value Reference Range Interpretation Comments Glucose Level (test code = UJG0360) 124 74-118 H [facility]lineCalcium Aipjx3063-08-20 06:43:00* Test Item Value Reference Range Interpretation Comments Calcium Level (test code = 16025-6) 7.9 8.4-10.2 L [facility]lineTotal Dyorlqlay7738-52-69 06:43:00* Test Item Value Reference Range Interpretation Comments Total Bilirubin (test code = 1975-2) 0.4 0.2-1.2 [facility]lineAspartate Amino Transf (AST/SGOT) 2019-05-08 06:43:00* Test Item Value Reference Range Interpretation Comments Aspartate Amino Transf (AST/SGOT) (test code = Aspartate Amino Transf (AST/SGOT)) 15 5-34 [facility]lineAlanine Aminotransferase (ALT/SGPT) 2019-05-08 06:43:00* Test Item Value Reference Range Interpretation Comments Alanine Aminotransferase (ALT/SGPT) (test code = 1742-6) 30 0-55 [facility]lineTotal Goapwbt8762-98-33 06:43:00* Test Item Value Reference Range Interpretation Comments Total Protein (test code = 2885-2) 6.3 6.5-8.1 L [facility] ShorelineAlbumin2020-03-19 06:43:00* Test Item Value Reference Range Interpretation Comments Albumin (test code = 1751-7) 3.0 3.5-5.0 L [facility] ShorelineGlobulin2020-03-19 06:43:00* Test Item Value Reference Range Interpretation Comments Globulin (test code = 97683-8) 3.3 2.3-3.5 [facility]lineAlbumin/Globulin Rqvkk7602-62-54 06:43:00 * Test Item Value Reference Range Interpretation Comments Albumin/Globulin Ratio (test code = 1759-0) 0.9 0.8-2.0 [facility]lineAlkaline Agcufhxheeo4217-96-37 06:43:00* Test Item Value Reference Range Interpretation Comments Alkaline Phosphatase (test code = 6768-6) 61 40-150 [facility]lineWhite Blood Idtuq9421-92-94 06:26:00* Test Item Value Reference Range Interpretation Comments White Blood Count (test code = 6690-2) 8.31 4.8-10.8 [facility]lineRed Blood Oxjiq6595-88-81 06:26:00* Test Item Value Reference Range Interpretation Comments Red Blood Count (test code = 789-8) 4.82 4.3-5.7 [facility]lineHemoglobin2020-03-19 06:26:00* Test Item Value Reference Range Interpretation Comments Hemoglobin (test code = 16772-9) 14.3 14.0-18.0 [facility]lineHematocrit2020-03-19 06:26:00* Test Item Value Reference Range Interpretation Comments Hematocrit (test code = 4544-3) 42.5 38.2-49.6 [facility]lineMean Corpuscular Zjstjm9495-39-71 06:26:00* Test Item Value Reference Range Interpretation Comments Mean Corpuscular Volume (test code = 787-2) 88.2 81-99 [facility]lineMean Corpuscular Qjcqdeemtu9338-62-32 06:26:00* Test Item Value Reference Range Interpretation Comments Mean Corpuscular Hemoglobin (test code = 785-6) 29.7 28-32 [facility]lineMean Corpuscular Hemoglobin Concent 2019-05-08 06:26:00* Test Item Value Reference Range Interpretation Comments Mean Corpuscular Hemoglobin Concent (test code = 786-4) 33.6 31-35 [facility]lineRed Cell Distribution Jdqdj2668-18-47 06:26:00* Test Item Value Reference Range Interpretation Comments Red Cell Distribution Width (test code = 82310-1) 13.1 11.7 -14.4 [facility] ShorelinePlatelet Zanra5711-57-94 06:26:00* Test Item Value Reference Range Interpretation Comments Platelet Count (test code = 777-3) 188 140-360 [facility]lineNeutrophils (%) (Auto)2019-05-08 06:26:00 * Test Item Value Reference Range Interpretation Comments Neutrophils (%) (Auto) (test code = 17735-7) 74.4 38.7-80.0 [facility]lineLymphocytes (%) (Auto)2019-05-08 06:26:00 * Test Item Value Reference Range Interpretation Comments Lymphocytes (%) (Auto) (test code = 736-9) 14.9 18.0-39.1 L [facility]lineMonocytes (%) (Auto)2019-05-08 06:26:00* Test Item Value Reference Range Interpretation Comments Monocytes (%) (Auto) (test code = 5905-5) 8.9 4.4-11.3 [facility]lineEosinophils (%) (Auto)2019-05-08 06:26:00 * Test Item Value Reference Range Interpretation Comments Eosinophils (%) (Auto) (test code = 713-8) 1.2 0.0-6.0 [facility]lineBasophils (%) (Auto)2019-05-08 06:26:00* Test Item Value Reference Range Interpretation Comments Basophils (%) (Auto) (test code = 706-2) 0.2 0.0-1.0 [facility] ShorelineIM GRANULOCYTES %2019-05-08 06:26:00* Test Item Value Reference Range Interpretation Comments IM GRANULOCYTES % (test code = IM GRANULOCYTES %) 0.4 0.0- 1.0 [facility]lineNeutrophils # (Auto)2019-05-08 06:26:00* Test Item Value Reference Range Interpretation Comments Neutrophils # (Auto) (test code = 751-8) 6.2 2.1-6.9 [facility]lineLymphocytes # (Auto)2019-05-08 06:26:00* Test Item Value Reference Range Interpretation Comments Lymphocytes # (Auto) (test code = 64197-5) 1.2 1.0-3.2 [facility]lineMonocytes # (Auto)2019-05-08 06:26:00* Test Item Value Reference Range Interpretation Comments Monocytes # (Auto) (test code = 742-7) 0.7 0.2-0.8 [facility]lineEosinophils # (Auto)2019-05-08 06:26:00* Test Item Value Reference Range Interpretation Comments Eosinophils # (Auto) (test code = 711-2) 0.1 0.0-0.4 [facility]lineBasophils # (Auto)2019-05-08 06:26:00* Test Item Value Reference Range Interpretation Comments Basophils # (Auto) (test code = 704-7) 0.0 0.0-0.1 [facility] ShorelineAbsolute Immature Granulocyte (auto 2019-05-08 06:26:00* Test Item Value Reference Range Interpretation Comments Absolute Immature Granulocyte (auto (shahab t code = Absolute Immature Granulocyte (auto) 0.03 0-0.1 [facility] ShorelineCT ABDOMEN/PELVIS I1287-04-40 22:42:00 [place] [address] Patient Name: TRENTON ISIDRO MR #: [id number] : 1970 Age/Sex: 48/M Req #: [id number] Adm Physician: Ordered by: MIMI GONZALEZ [employer] Report #: [id number] Location: ER Room/Bed: Procedure: [id number] CT/CT ABDOMEN/PELVIS W Exam Date: Exam Time: REPORT STATUS: Signed EXAM: CT Abdomen and Pelvis WITH contrast INDICATION: Abdominal pain, nausea, vomiting diar danica. Fever and chills. COMPARISON: None. TECHNIQUE: Abdomen and pelvis were scanned utilizing a multidetector helical scanner from the lung base to the p ubic symphysis after administration of IV contrast. Coronal and sagittal refor mations were obtained. Routine protocol was performed. Scan was performed when during portal venous phase. IV CONTRAST: 100 cc Isovue-370 ORAL CONTRAST: Water RADIATION DOSE: Total DLP: 718.03 mGy *cm Estimated effective dose: (DLP x 0.015 x size factor) mSv COMPLICATIONS: None FINDINGS: LINES and TUBES: None. L OWER THORAX: There is bibasilar atelectasis. HEPATOBILIARY: The liver is d iffuse hypodense compared to the spleen, consistent with diffuse hepatic diffu se hepatic steatosis. No focal hepatic lesions. No biliary ductal dilation. GALLBLADDER: No radio-opaque stones or sludge. No wall thickening. SP NALLELY: No splenomegaly. PANCREAS: No focal masses or ductal dilatation. ADRENALS: No adrenal nodules KIDNEYS/URETERS: Kidneys enhance symme trically. No hydronephrosis. No cystic or solid mass lesions. No stones. GI TRACT: No abnormal distention, wall thickening, or evidence of bowel obst ruction. Appendix is normal. PELVIC ORGANS/BLADDER: Unremarkable. LYMPH NODES: No lymphadenopathy. VESSELS: There is mild atherosclerotic d isease in the aorta and major arterial branches. PERITONEUM / RETROPERITO NEUM: No free air or fluid. BONES: Unremarkable. SOFT TISSUES: Unremar kable. IMPRESSION: 1. No acute abdominal pelvic abnormality . 2. Hepatic steatosis. Signed by: Dr. Juli Brenner M.D. on 04/19 10:52 PM Dictated By: ROXANNA BRENNER MD, MD 6198 Transcribed By: BONY on 05/07/19 2 252 COPY TO: MIMI GONZALEZ NP CHEST 2 SIFZT5919-76-29 22:31:00 [place] [address] Patient Name: TRENTON ISIDRO MR #: [id number] : 1970 Age/Sex: 48/M Req #: [id number] Adm Physician: Ordered by: MIMI GONZALEZ NP Report #: [id number] Location: Room/Bed: Procedure: [id number] DX/CHEST 2 VIEWS Exam Date: 05/07/19 Exam Time: 2149 REPORT STATUS: Signed EXAMINATI ON: CHEST 2 VIEWS INDICATION: Pain. COMPARISON: None F INDINGS: TUBES and LINES: None. LUNGS: Lungs are well inflated. Mild p erihilar, peribronchial thickening and perihilar streaky densities may reflect viral infection versus reactive airway disease. Bibasilar atelectasis. PLEURA: No pleural effusion or pneumothorax. HEART AND MEDIASTINUM: The cardiomediastinal silhouette is unremarkable. BONES AND SOFT TISSUES: No acute osseous lesion. Soft tissues are unremarkable. UPPER ABDOMEN: N o free air under the diaphragm. IMPRESSION: Mild bilateral perihilar , peribronchial thickening. No focal consolidations. Signed by: Dr. Juli Brenner M.D. on 05/07/2019 10:33 PM Dictated By: ROXANNA BRENNER MD, MD 32 Transcri bed By: BONY on 05/07/192232 COPY TO: MIMI GONZALEZ [employer] Lactic Acid Dxjwd2976-70-68 21:57:00* Test Item Value Reference Range Interpretation Comments Lactic Acid Level (test code = Lactic Acid Level) 2.0 0.5- 2.0 [facility]lineInfluenza Virus Types A,B Antigen 2019-05-07 21:09:00* Test Item Value Reference Range Interpretation Comments Influenza Virus Types A,B Antigen (test code = 32331-0) NEGATIVE NEGATIVE [facility] ShorelineLipase2020-03-18 21:08:00* Test Item Value Reference Range Interpretation Comments Lipase (test code = 3040-3) 18 8- [facility]lineGroup A Streptococcus Fkmgjw4498-38-51 21:05:00* Test Item Value Reference Range Interpretation Comments Group A Streptococcus Screen (test code = 45434-6) NEGATIVE NEG ATIVE [facility] ShorelineUrine OJR1668-35-15 21:03:00* Test Item Value Reference Range Interpretation Comments Urine WBC (test code = 5821-4) NONE 0-5 [facility]lineUrine NWX0551-55-29 21:03:00* Test Item Value Reference Range Interpretation Comments Urine RBC (test code = 26941-0) NONE 0-5 [facility]lineUrine Cwbfvqlh6709-89-15 21:03:00* Test Item Value Reference Range Interpretation Comments Urine Bacteria (test code = 40892-2) FEW NONE [facility]lineUrine Epithelial Egsvm1743-85-10 21:03:00 * Test Item Value Reference Range Interpretation Comments Urine Epithelial Cells (test code = 65421-5) NONE NONE [facility]lineUrine Zbeuh2483-95-46 20:52:00* Test Item Value Reference Range Interpretation Comments Urine Color (test code = 5778-6) YELLOW YELLOW [facility]lineUrine Yixkwua9389-08-04 20:52:00* Test Item Value Reference Range Interpretation Comments Urine Clarity (test code = 49249-6) SL CLOUDY CLEAR H [facility]lineUrine Specific Vwxwoxx6792-69-05 20:52:00 * Test Item Value Reference Range Interpretation Comments Urine Specific [place] (test code = 5811-5) 1.030 1.010-1.02 5 H [facility] ShorelineUrine sJ2405-95-63 20:52:00* Test Item Value Reference Range Interpretation Comments Urine pH (test code = 87795-9) 5.5 5-7 [facility]lineU[facility] Leukocyte Qgbxiljj4785-84-59 20:52:00* Test Item Value Reference Range Interpretation Comments Urine Leukocyte Esterase (test code = 5799-2) NEGATIVE NEGATIVE [facility]lineUrine Hvnupvx5931-82-99 20:52:00* Test Item Value Reference Range Interpretation Comments Urine Nitrite (test code = 48873-9) NEGATIVE NEGATIVE [facility]lineUrine Usbnonb4719-53-88 20:52:00* Test Item Value Reference Range Interpretation Comments Urine Protein (test code = 5804-0) NEGATIVE NEGATIVE [facility]lineUrine Glucose (UA)2019-05-07 20:52:00* Test Item Value Reference Range Interpretation Comments Urine Glucose (UA) (test code = 2349-9) NEGATIVE NEGATIVE [facility]lineUrine Swuoacg3264-65-49 20:52:00* Test Item Value Reference Range Interpretation Comments Urine Ketones (test code = 67188-2) NEGATIVE NEGATIVE [facility]lineUrine Qeutmyxblxpg9126-31-05 20:52:00* Test Item Value Reference Range Interpretation Comments Urine Urobilinogen (test code = 00990-0) 0.2 0.2-1 [facility]lineUrine Wvhmqxava0131-76-60 20:52:00* Test Item Value Reference Range Interpretation Comments Urine Bilirubin (test code = 1978-6) NEGATIVE NEGATIVE [facility]lineUrine Rjnjf0843-22-57 20:52:00* Test Item Value Reference Range Interpretation Comments Urine Blood (test code = 04903-2) NEGATIVE NEGATIVE [facility]
--- OUTSIDE RECORDS SUMMARY | 2019-09-19 21:34 | XMS REPORT | Continuity of Care Document ---
Author Author [facility] t Organization [facility] Address [address] [place] [address] Phone Unavailable Care Team Providers Care Triage Nurse Name Role Phone Gregorio MODI MD PCP Gregorio MODI Attphys Unavailable Jesusita BRITO Attphys Unavailable Gregorio MODI Admphys Unavailable Payers Payer Name Policy Type Policy Number Effective Date Expiration Date Gregorio rios [employer] [id number] 2014 00:00:00 [facility] Problems This patient has no known problems. Allergies, Adverse Reactions, Alerts This patient has no known allergies or adverse reactions. Medications Ordered Medication Name Filled Medication Name Start Date Stop Da te Current Medication? Ordering Clinician Indication Dosage Frequency Signature (SIG) Comments Components Source Ciprofloxacin Hcl (Cipro) 500 Mg Tablet Ciprofloxacin Hcl (C ipro) 500 Mg Tablet Yes 500 Every 12 Hours [facility] Metronidazole (Flagyl) 250 Mg Tablet Metronidazole (Flagyl) 250 Mg Tablet Yes 500 Three Times A Day [facility] Procedures Procedure Date / Time Performed Performing Clinician Sour e Computed tomography of abdomen and pelvis with contrast 2019 00:00:00 MIMI GONZALEZ [facility] X-ray of chest, two views 2019-05-07 00:00:00 MIMI GONZALEZ [facility] Encounters Start Date/Time End Date/Time Encounter Type Admission Type Attendi [facility] Facility Care Department Encounter ID Source 2019-05-07 23:27:00 2019-05-09 13:03:00 Discharged Inpatient 1 AMY BRITO [facility] [id number] [facility] Results Test Description Test Time Test Comments Results Result Comments Source CT BRAIN WO 2019-09-19 13:10:00 [place] [address] [place] [address] Patient Name: TRENTON ISIDRO JR MR #: [id number] : 1970 Age/Sex: 48/M Req #: [id number] Adm Physician: EVIE MODI MD Ordered by: RADHA JONES DO Report #: [id number] Location: [facility] Room/Bed: [place] [address] Procedure: [id number] CT/CT BRAIN WO Exam Date: 09/19/19 Exam [...] JONES DO CHEST SINGLE (PORTABLE) 2019-09-19 10:28:00 [facility] [address] [place] [address] Patient Name: TRENTON ISIDRO JR MR #: [id number] : 1970 Age/Sex: 48/M Req #: [id number] Adm Physician: Ordered by: RADHA JONES DO Report #: [id number] Location: ER Room/Bed: Procedure: [id number] DX/CHEST SINGLE (PORTABLE) Exam Date: Exam Time: [...] Test Item Blood Culture (test code = 84135181) NO GROWTH AFTER 24 HOURS [facility] Urea Gjuwowat3163-04-94 08:32:00* Test Item Value Reference Range Interpretation Comments Blood Urea Nitrogen (test code = 3094-0) 10 7-26 [facility]/Creatinine Hpcph7141-20-54 08:32:00* Test Item Value Reference Range Interpretation Comments BUN/Creatinine Ratio (test code = 3097-3) 12 6- [facility] Quzge4127-84-66 06:43:00* Test Item Value Reference Range Interpretation Comments Sodium Level (test code = 2951-2) 138 136-145 [facility]Potassium Xfkds9342-92-91 06:43:00* Test Item Value Reference Range Interpretation Comments Potassium Level (test code = 2823-3) 3.5 3.5-5.1 [facility] HospitalChloride Byofy5869-97-23 06:43:00* Test Item Value Reference Range Interpretation Comments Chloride Level (test code = 2075-0) 110 98-107 H [facility] HospitalCarbon Dioxide Volzf5048-78-90 06:43:00* Test Item Value Reference Range Interpretation Comments Carbon Dioxide Level (test code = 2028-9) 23 22-29 [facility] HospitalAnion Ytf7803-08-52 06:43:00* Test Item Value Reference Range Interpretation Comments Anion Gap (test code = 72406-8) 8.5 8-16 [facility] HospitalCreatinine2020-03-19 06:43:00* Test Item Value Reference Range Interpretation Comments Creatinine (test code = 2160-0) 0.82 0.72-1.25 [facility] HospitalEstimat Glomerular Filtration Rate 2019-05-08 06:43:00* Test Item Value Reference Range Interpretation Comments Estimat Glomerular Filtration Rate (test code = 836357163) > 60 >60 Ranges were taken from the National Kidney Disease Education Program and the [place] [facility] literature.Reference ranges:60 or greater: Mhuqkk42-85 ( for 3 consecutive months): Chronic kidney disease 15 or less: Kidney failureMetropolitan Methodist HospitalGlucose Wuomt0269-97-82 06:43:00* Test Item Value Reference Range Interpretation Comments Glucose Level (test code = PVD6676) 124 74-118 H [facility] HospitalCalcium Bmrcz1236-74-99 06:43:00* Test Item Value Reference Range Interpretation Comments Calcium Level (test code = 67623-8) 7.9 8.4-10.2 L [facility] HospitalTotal Cnyknhwmr6529-44-89 06:43:00* Test Item Value Reference Range Interpretation Comments Total Bilirubin (test code = 1975-2) 0.4 0.2-1.2 [facility] HospitalAspartate Amino Transf (AST/SGOT) 2019-05-08 06:43:00* Test Item Value Reference Range Interpretation Comments Aspartate Amino Transf (AST/SGOT) (test code = Aspartate Amino Transf (AST/SGOT)) 15 5-34 [facility] HospitalAlanine Aminotransferase (ALT/SGPT) 2019-05-08 06:43:00* Test Item Value Reference Range Interpretation Comments Alanine Aminotransferase (ALT/SGPT) (test code = 1742-6) 30 0-55 [facility] HospitalTotal Mkwxbhd8219-03-39 06:43:00* Test Item Value Reference Range Interpretation Comments Total Protein (test code = 2885-2) 6.3 6.5-8.1 L [facility] HospitalAlbumin2020-03-19 06:43:00* Test Item Value Reference Range Interpretation Comments Albumin (test code = 1751-7) 3.0 3.5-5.0 L [facility] HospitalGlobulin2020-03-19 06:43:00* Test Item Value Reference Range Interpretation Comments Globulin (test code = 97317-9) 3.3 2.3-3.5 [facility] HospitalAlbumin/Globulin Hhbor9777-10-25 06:43:00 * Test Item Value Reference Range Interpretation Comments Albumin/Globulin Ratio (test code = 1759-0) 0.9 0.8-2.0 [facility] HospitalAlkaline Fzjqnwnsqkt3297-35-81 06:43:00* Test Item Value Reference Range Interpretation Comments Alkaline Phosphatase (test code = 6768-6) 61 40-150 [facility] HospitalWhite Blood Gifgw2968-31-82 06:26:00* Test Item Value Reference Range Interpretation Comments White Blood Count (test code = 6690-2) 8.31 4.8-10.8 [facility] HospitalRed Blood Xfmqj9565-45-06 06:26:00* Test Item Value Reference Range Interpretation Comments Red Blood Count (test code = 789-8) 4.82 4.3-5.7 [facility] HospitalHemoglobin2020-03-19 06:26:00* Test Item Value Reference Range Interpretation Comments Hemoglobin (test code = 22998-0) 14.3 14.0-18.0 [facility] HospitalHematocrit2020-03-19 06:26:00* Test Item Value Reference Range Interpretation Comments Hematocrit (test code = 4544-3) 42.5 38.2-49.6 [facility] HospitalMean Corpuscular Fgeqnz6706-92-37 06:26:00* Test Item Value Reference Range Interpretation Comments Mean Corpuscular Volume (test code = 787-2) 88.2 81-99 [facility] HospitalMean Corpuscular Mlluqnarrt4015-30-63 06:26:00* Test Item Value Reference Range Interpretation Comments Mean Corpuscular Hemoglobin (test code = 785-6) 29.7 28-32 [facility] HospitalMean Corpuscular Hemoglobin Concent 2019-05-08 06:26:00* Test Item Value Reference Range Interpretation Comments Mean Corpuscular Hemoglobin Concent (test code = 786-4) 33.6 31-35 [facility] HospitalRed Cell Distribution Nuxjb6523-12-92 06:26:00* Test Item Value Reference Range Interpretation Comments Red Cell Distribution Width (test code = 98493-2) 13.1 11.7 -14.4 [facility] HospitalPlatelet Pbcog1733-28-12 06:26:00* Test Item Value Reference Range Interpretation Comments Platelet Count (test code = 777-3) 188 140-360 [facility] HospitalNeutrophils (%) (Auto)2019-05-08 06:26:00 * Test Item Value Reference Range Interpretation Comments Neutrophils (%) (Auto) (test code = 25179-5) 74.4 38.7-80.0 [facility] HospitalLymphocytes (%) (Auto)2019-05-08 06:26:00 * Test Item Value Reference Range Interpretation Comments Lymphocytes (%) (Auto) (test code = 736-9) 14.9 18.0-39.1 L [facility] HospitalMonocytes (%) (Auto)2019-05-08 06:26:00* Test Item Value Reference Range Interpretation Comments Monocytes (%) (Auto) (test code = 5905-5) 8.9 4.4-11.3 [facility] HospitalEosinophils (%) (Auto)2019-05-08 06:26:00 * Test Item Value Reference Range Interpretation Comments Eosinophils (%) (Auto) (test code = 713-8) 1.2 0.0-6.0 [facility] HospitalBasophils (%) (Auto)2019-05-08 06:26:00* Test Item Value Reference Range Interpretation Comments Basophils (%) (Auto) (test code = 706-2) 0.2 0.0-1.0 [facility] HospitalIM GRANULOCYTES %2019-05-08 06:26:00* Test Item Value Reference Range Interpretation Comments IM GRANULOCYTES % (test code = IM GRANULOCYTES %) 0.4 0.0- 1.0 [facility] HospitalNeutrophils # (Auto)2019-05-08 06:26:00* Test Item Value Reference Range Interpretation Comments Neutrophils # (Auto) (test code = 751-8) 6.2 2.1-6.9 [facility] HospitalLymphocytes # (Auto)2019-05-08 06:26:00* Test Item Value Reference Range Interpretation Comments Lymphocytes # (Auto) (test code = 93756-8) 1.2 1.0-3.2 [facility] HospitalMonocytes # (Auto)2019-05-08 06:26:00* Test Item Value Reference Range Interpretation Comments Monocytes # (Auto) (test code = 742-7) 0.7 0.2-0.8 [facility] HospitalEosinophils # (Auto)2019-05-08 06:26:00* Test Item Value Reference Range Interpretation Comments Eosinophils # (Auto) (test code = 711-2) 0.1 0.0-0.4 [facility] HospitalBasophils # (Auto)2019-05-08 06:26:00* Test Item Value Reference Range Interpretation Comments Basophils # (Auto) (test code = 704-7) 0.0 0.0-0.1 [facility] HospitalAbsolute Immature Granulocyte (auto 2019-05-08 06:26:00* Test Item Value Reference Range Interpretation Comments Absolute Immature Granulocyte (auto (shahab t code = Absolute Immature Granulocyte (auto) 0.03 0-0.1 [facility] HospitalCT ABDOMEN/PELVIS Y5167-07-09 22:42:00 [place] [address] Patient Name: TRENTON ISIDRO MR #: [id number] : 1970 Age/Sex: 48/M Req #: [id number] Adm Physician: Ordered by: MIMI GONZALEZ [employer] Report #: [id number] Location: ER Room/Bed: Procedure: [id number] CT/CT ABDOMEN/PELVIS W Exam Date: Exam Time: [...] PM Dictated By: ROXANNA BRENNER MD, MD 5280 Transcribed By: BONY on 05/07/19 2 252 COPY TO: MIMI GONZALEZ NP CHEST 2 PZUUZ1390-27-42 22:31:00 [place] [address] Patient Name: TRENTON ISIDRO MR #: [id number] : 1970 Age/Sex: 48/M Req #: [id number] Adm Physician: Ordered by: MIMI GONZALEZ NP Report #: [id number] Location: Room/Bed: Procedure: [id number] DX/CHEST 2 VIEWS Exam Date: 05/07/19 Exam [...] By: BONY on 05/07/192232 COPY TO: MIMI OGNZALEZ [employer] Lactic Acid Ocjjj5176-45-10 21:57:00* Test Item Value Reference Range Interpretation Comments Lactic Acid Level (test code = Lactic Acid Level) 2.0 0.5- 2.0 [facility] HospitalInfluenza Virus Types A,B Antigen 2019-05-07 21:09:00* Test Item Value Reference Range Interpretation Comments Influenza Virus Types A,B Antigen (test code = 03768-1) NEGATIVE NEGATIVE [facility] HospitalLipase2020-03-18 21:08:00* Test Item Value Reference Range Interpretation Comments Lipase (test code = 3040-3) 18 8- [facility] HospitalGroup A Streptococcus Pcaewl2031-72-54 21:05:00* Test Item Value Reference Range Interpretation Comments Group A Streptococcus Screen (test code = 50966-0) NEGATIVE NEG ATIVE [facility] HospitalUrine OKR7013-54-73 21:03:00* Test Item Value Reference Range Interpretation Comments Urine WBC (test code = 5821-4) NONE 0-5 [facility] HospitalUrine WEB2956-31-87 21:03:00* Test Item Value Reference Range Interpretation Comments Urine RBC (test code = 65964-7) NONE 0-5 [facility] HospitalUrine Otgfpgtv3282-48-75 21:03:00* Test Item Value Reference Range Interpretation Comments Urine Bacteria (test code = 40525-1) FEW NONE [facility] HospitalUrine Epithelial Dtgvk1982-11-21 21:03:00 * Test Item Value Reference Range Interpretation Comments Urine Epithelial Cells (test code = 01389-4) NONE NONE [facility] HospitalUrine Tjvwy4925-26-59 20:52:00* Test Item Value Reference Range Interpretation Comments Urine Color (test code = 5778-6) YELLOW YELLOW [facility] HospitalUrine Ddpzekn7458-12-13 20:52:00* Test Item Value Reference Range Interpretation Comments Urine Clarity (test code = 53522-6) SL CLOUDY CLEAR H [facility] HospitalUrine Specific Qimnsjo7568-97-19 20:52:00 * Test Item Value Reference Range Interpretation Comments Urine Specific [place] (test code = 5811-5) 1.030 1.010-1.02 5 H [facility] HospitalUrine mW5842-04-93 20:52:00* Test Item Value Reference Range Interpretation Comments Urine pH (test code = 98114-2) 5.5 5-7 [facility] HospitalU[facility] Leukocyte Mcfxixgc8509-71-52 20:52:00* Test Item Value Reference Range Interpretation Comments Urine Leukocyte Esterase (test code = 5799-2) NEGATIVE NEGATIVE [facility] HospitalUrine Wfuucdv8874-74-66 20:52:00* Test Item Value Reference Range Interpretation Comments Urine Nitrite (test code = 94763-2) NEGATIVE NEGATIVE [facility] HospitalUrine Ohskhpt8226-91-40 20:52:00* Test Item Value Reference Range Interpretation Comments Urine Protein (test code = 5804-0) NEGATIVE NEGATIVE [facility] HospitalUrine Glucose (UA)2019-05-07 20:52:00* Test Item Value Reference Range Interpretation Comments Urine Glucose (UA) (test code = 2349-9) NEGATIVE NEGATIVE [facility] HospitalUrine Pquolkf4443-52-69 20:52:00* Test Item Value Reference Range Interpretation Comments Urine Ketones (test code = 57854-1) NEGATIVE NEGATIVE [facility] HospitalUrine Lychpogouens5195-81-62 20:52:00* Test Item Value Reference Range Interpretation Comments Urine Urobilinogen (test code = 42255-1) 0.2 0.2-1 [facility] HospitalUrine Gjsrehoxm2059-03-78 20:52:00* Test Item Value Reference Range Interpretation Comments Urine Bilirubin (test code = 1978-6) NEGATIVE NEGATIVE [facility] HospitalUrine Ugyoa5344-50-97 20:52:00* Test Item Value Reference Range Interpretation Comments Urine Blood (test code = 62026-5) NEGATIVE NEGATIVE [facility]
[2019-09-20] VITALS: BP 107/71
[2019-09-20 03:00] VITALS: BP 113/69
--- NOTE | 2019-09-20 03:00 | NUR ---
C/O SWEATY AND FEELING HOT. CHECKED VITALS WITHIN NORMAL LIMITS. BLOOD SUGAR 191. WILL MONITOR PATIENT.
--- NOTE | 2019-09-20 03:28 | NUR ---
NO COMPLAINTS AT THIS TIME. RESTING IN BED.
[2019-09-20 04:00] VITALS: BP 118/84
[2019-09-20 05:37] LABS: BASOPHILS # (AUTO) 0.1 (0.0-0.1); BASOPHILS % 0.6 % (0.0-1.0); EOSINOPHILS # (AUTO) 0.2 (0.0-0.4); EOSINOPHILS % 2.4 % (0.0-6.0); HEMATOCRIT 40.4 % (38.2-49.6); HEMOGLOBIN 14.1 g/dL (14.0-18.0); LYMPHOCYTES % 31.8 % (18.0-39.1); MEAN CORPUSCULAR HEMOGLOBIN 31.3 pg (28-32); MEAN CORPUSCULAR HGB CONC 34.9 g/dL (31-35); MONOCYTES # (AUTO) 1.2 (0.2-0.8); MONOCYTES % 12.1 % (4.4-11.3); NEUTROPHILS % 52.6 % (38.7-80.0); PLATELET COUNT 155 x10e3/uL (140-360); RED BLOOD COUNT 4.51 x10e6/uL (4.3-5.7); RED CELL DISTRIBUTION WIDTH 12.9 % (11.7-14.4)
[2019-09-20 05:49] LABS: MEAN CORPUSCULAR VOLUME 89.6 fL (81-99)
[2019-09-20 06:07] LABS: ANION GAP 10.8 mmol/L (8-16); BLOOD UREA NITROGEN 9 mg/dL (7-26); BUN/CREATININE RATIO 11 (6-25); CALCIUM 8.2 mg/dL (8.4-10.2); CARBON DIOXIDE 23 mmol/L (22-29); CHLORIDE 109 mmol/L (98-107); CREATININE, SERUM 0.85 mg/dL (0.72-1.25); EST GLOMERULAR FILTRATION RATE > 60 ML/MIN (60-); GLUCOSE 132 mg/dL (74-118); POTASSIUM 3.8 mmol/L (3.5-5.1); SODIUM 139 mmol/L (136-145)
--- NOTE | 2019-09-20 06:30 | NUR ---
SPOKE TO MD MODI. NOTIFIED OF NEGATIVE COVID RESULT PER LAB VERBAL MESSAGE.
--- NOTE | 2019-09-20 07:21 | NUR ---
REPORT GIVEN TO DAY SHIFT NURSE. ALERT AND RESTING IN BED. NO SIGNS IV INFILTRATION. BED LOCKED AND IN LOW POSITION. CALL LIGHT WITHIN REACH. BED ALARM ACTIVATED.
[2019-09-20] MEDS: INSULIN REGULAR, HUMAN 100 UNIT/1 ML 3ML VIAL SQ SCH (08:57)
[2019-09-20 10:23] VITALS: BP 118/84
--- NOTE | 2019-09-20 10:33 | Progress Note ---
DATE: SUBJECTIVE: The patient is a 48-year-old gentleman that came in with possible acute sepsis, has been ruled out. LP was done yesterday. The patient's LP was essentially normal. Gram stain shows no WBCs and no organisms seen. Laboratory values, magallanes virus is still pending and has been done Lyme titer, which is pending. CSF was bloody, CSF color was red. It was a traumatic puncture. CSF otherwise was essentially within normal limits. Today, the patient is feeling well. No cough, no congestion. Vital signs except for headache from his LP. OBJECTIVE: VITAL SIGNS: Temperature is 98.7, pulse 73, respirations 17, blood pressure is 118/84, pulse oximeter 97%. HEENT: Normocephalic and atraumatic. Pupils are reactive to light and accommodation. CVS: S1 and S2 normal. Regular rate and rhythm. ABDOMEN: Nontender, nondistended. EXTREMITIES: No clubbing, no cyanosis and no edema. ASSESSMENT: Mr. Dowd with: 1. Elevated white count, LP negative, probably viral in nature. The patient has also A1c of 7.9, new onset type 2 diabetes. PLAN: Okay to discharge and it is okay to Dr. Deluca. Metformin and atorvastatin has been written for at this time. Further recommendation per clinical course and also Dr. Deluca's recommendation. Damir Perez MD ASJ/MODL /[id number]
--- NOTE | 2019-09-20 10:40 | NUR ---
Pt discharged home at this time. Pt verbalized understanding of all discharge instructions and follow up appointments. Pt was discharged with two prescriptions and verbalized understanding of all new medications.
--- NOTE | 2019-09-20 16:51 | NUR ---
Mr. Rhett Dowd, who was in usual state of health, on my way to the office when he developed fever. The patient complained of generalized fatigue and was sent to the emergency room. The patient arrived and had an LP done for fever and elevated white count. The patient is admitted to the hospital. PAST MEDICAL HISTORY: History of hypertension, history of prediabetes, otherwise noncontributory. MEDICATIONS: He takes none. ALLERGIES: NO CLEAR ALLERGIES. SOCIAL HISTORY: No EtOH, no IV drug abuse, positive for smoking. PHYSICAL EXAMINATION: VITAL SIGNS: Temperature is 100.6, pulse of 122, respirations of 19, blood pressure is 130/84. HEENT: Normocephalic and atraumatic. The patient had a poor oropharynx with poor dental hygiene. CVS: S1 and S2 normal. Regular rhythm. LUNGS: Clear to auscultation. ABDOMEN: Soft, nontender, nondistended. EXTREMITIES: No clubbing, no cyanosis, no edema. LABORATORY DATA: The patient's lactic acid was 1.2. Urine essentially negative. White count is 19,000, neutrophil count 81,000. The patient also had lumbar puncture done, which was normal. ASSESSMENT: A 48-year-old gentleman with elevated white count and elevated blood sugars, admitted for possible viral syndrome. LP was negative. The patient has been started on broad-spectrum antibiotics, has been kept on insulin. [id number]
--- NOTE | 2019-09-20 17:55 | Consultation ---
DATE OF CONSULTATION: HISTORY OF PRESENT ILLNESS: Mr. Delaney is a very pleasant 48-year-old gentleman who was admitted on 09/19/2019. I did see him on 09/19/2019 with fever, chills, weakness, not feeling well, and headache. The patient has history of hypertension and early diabetes. He was in good health until he was driving home when he felt really bad, came to the emergency room. He had some headache and not feeling well. He had a temperature 100.6, heart rate was 122. The patient was admitted. LP was done. I was asked to see him. The patient when I saw him, he said he is feeling much better. He has no complaints. The patient since admission had no more fever. REVIEW OF SYSTEMS: When I saw him HEENT: Negative. PULMONARY: Negative. CARDIAC: Negative. : Negative. GI: Negative. SKIN: There is no other rash. I did discuss the case with his attending, Dr. Perez. LABORATORY DATA: Reviewed. His COVID-19 is negative. His sodium 139, potassium 3.6, creatinine 0.85. His spinal fluid, WBC of 5, RBC of 11,573. PHYSICAL EXAMINATION: GENERAL: He is currently alert, oriented. VITALS: Stable, currently afebrile. HEENT: Not icteric. NECK: Supple. CHEST: Clear. HEART: S1 and S2. No S3, S4, or murmur. ABDOMEN: Soft. Bowel sounds present. EXTREMITIES: Muscular rash. IMPRESSION: Fever and headache, probably viral. Discussed with attending. Reviewed all his lab. I will review his labs again tonight. We will visit again in the morning. If all workup is negative, could be discharged home. MD BELEN Calvert/MODL /[id number]
== END 2019-09-20 10:40 | disposition home or self-care (01) ==
LOC: ER 08:45 → ERHOLD 12:23 → IMCU 16:55
PROVIDERS: ADMIT Family Medicine; ATTEND Family Medicine
DX: E11.65 Type 2 diabetes mellitus with hyperglycemia (principal); R50.9 Fever, unspecified; D72.829 Elevated white blood cell count, unspecified; R51 Headache; E78.5 Hyperlipidemia, unspecified; E66.9 Obesity, unspecified; Z68.35 Body mass index [BMI] 35.0-35.9, adult; I10 Essential (primary) hypertension; Z11.59 Encounter for screening for other viral diseases
CPT/HCPCS: 36415; 70450; 71045; 80048; 80053; 81001; 82040; 82550; 82553; 82784; 82948; 83036; 83605; 83690; 83916; 84484; 85025; 86592; 86789; 87040; 87070; 87205; 87476; 89051; 99284; G0378; J0692; J1817; J2001; J2270; J7030; U0002

== ENCOUNTER 2024-09-09 21:30 | Emergency (ER) | payer OTHER, SELFPAY ==
[~2024-09-09] VITALS: Ht 165.1 cm; Wt 96.6 kg
[2024-09-09 22:00] VITALS: TEMP 98
[2024-09-09 23:29] LABS: BASOPHILS % 0.6 % (0.0-1.0); EOSINOPHILS % 0.9 % (0.0-6.0); LYMPHOCYTES % 21.5 % (18.0-39.1); MONOCYTES % 8.5 % (4.4-11.3); NEUTROPHILS % 68.1 % (38.7-80.0); RED CELL DISTRIBUTION WIDTH 12.8 % (11.7-14.4)
[2024-09-09] MEDS: SODIUM CHLORIDE 0.9% 1000ML 1,000 ML IV STA (23:47)
[2024-09-09] MEDS: ONDANSETRON HCL INJ 2MG/ML 2ML 2 MG/ML VIAL IV STA (23:47)
[2024-09-09] MEDS: Morphine 4mg INJECTION 4 MG/ML INJ IV STA (23:47)
[2024-09-09 23:49] LABS: LEUKOCYTE ESTERASE ,URINE NEGATIVE (NEGATIVE); PROTEIN,URINE DIPSTICK NEGATIVE (NEGATIVE); URINE UROBILINOGEN 0.2 mg/dL (0.2 - 1)
[2024-09-09 23:54] LABS: EPITHELIAL CELLS,URINE FEW /LPF; WBC,URINE (MAN) 0-5 /HPF (0-5)
[2024-09-09 23:56] LABS: EST GLOMERULAR FILTRATION RATE 95 ML/MIN (>=60)
[2024-09-10] MEDS ORDERED: IOPAMIDOL 370 MG/ML 100 ML INFUS..BTL INJ ONE (00:08)
[2024-09-10 00:49] VITALS: PULSE 64; RESP 17; O2SAT 98
[2024-09-10] MEDS ORDERED: ONDANSETRON HCL INJ 2MG/ML 2ML 2 MG/ML VIAL ONE (02:16)
[2024-09-10] MEDS ORDERED: ONDANSETRON ODT4 MG PO (08:45)
[2024-09-10] MEDS ORDERED: PROTONIX20 MG PO (08:45)
== END 2024-09-10 00:45 | disposition home or self-care (01) ==
LOC: ER 21:40
DX: R10.33 Periumbilical pain (principal); R10.13 Epigastric pain; E11.65 Type 2 diabetes mellitus with hyperglycemia; R11.2 Nausea with vomiting, unspecified; E78.5 Hyperlipidemia, unspecified
CPT/HCPCS: 36415; 74177; 80053; 81001; 82550; 83690; 84484; 85025; 93005; 99284; J2270; J2405 ×2; J7030; Q9967